=== PATIENT | male | born 1995 | race Two or more races ===

== ENCOUNTER 2024-11-07 19:46 | Inpatient (IN) | payer MEDICAID, OTHER ==
[~2024-11-07] VITALS: Ht 180.3 cm; Wt 78.9 kg
--- NOTE | 2024-11-07 20:15 | ED.PDOC ---
GI ASSESSMENT HPI Comments 29 y.o male presents to the ED for a chief complaint of generalized weakness associated with nausea, epigastric pain, and a generalized headache that started today at 0200 s/p getting off work. Patient reports pain is localized to the epigastric region, described as sharp, constant, radiates to lower abdomen and worsens on palpation. Patient also reports cramping to bilateral hands with tinglings sensation. He denies any vomiting, fever, chills, diarrhea, constipation, sweats. No medical history noted. Chief Complaint: General Weakness Time Seen by MD: 20:05 Reviewed Notes: Nurses Notes, Medications, Allergies Allergies: Coded Allergies: NO KNOWN ALLERGIES (Unverified , 11/07/24) Information Source: Patient Mode of Arrival: Ambulatory Timing: Hours Duration: Since onset Quality: Sharp Vomitus: None Stool: Normal Severity: Moderate Recent: None Recent Hx of: None Pain Location: Epigastric Modifying Factors: Nothing Associated sign and symptoms: Nausea, Abdominal Pain Past Medical History PAST MEDICAL HISTORY: Denies Surgical History: Denies all surgeries Family History Family History: Reviewed,noncontributory to illness Social History Smoker: Non-Smoker Alcohol: Denies ETOH Use Drugs: Denies Drug Use Lives In: Home Constitutional: denies: chills, diaphoresis, fatigue, fever, malaise, sweats, weakness, others EENTM: denies: blurred vision, double vision, ear bleeding, ear discharge, ear drainage, ear pain, ear ringing, eye pain, eye redness, hearing loss, mouth pain, mouth swelling, nasal discharge, nose bleeding, nose congestion, nose pain, photophobia, tearing, throat pain, throat swelling, voice changes, others Respiratory: denies: cough, hemoptysis, orthopnea, SOB at rest, shortness of breath, SOB with excertion, stridor, wheezing, others Cardiovascular: denies: chest pain, dizzy spells, diaphoresis, Dyspnea on exertion, edema, irregular heart beat, left arm pain, lightheadedness, palpitations, PND, syncope, others Gastrointestinal: reports: abdominal pain, nausea; denies: abdomen distended, blood streaked bowels, constipated, diarrhea, dysphagia, difficulty swallowing, hematemesis, melena, poor appetite, poor fluid intake, rectal bleeding, rectal pain, vomiting, others Genitourinary: denies: burning, dysuria, flank pain, frequency, hematuria, i ncontinence, penile discharge, penile sore, pain, testicle pain, testicle swelling, urgency, others Neurological: reports: headache; denies: dizziness, fainting, left sided numbness, left sided weakness, numbness, paresthesia, pre-existing deficit, right sided numbness, right sided weakness, seizure, speech problems, tingling, tremors, weakness, others Musculoskeletal: reports: muscle stiffness, others (hand cramping ); denies: back pain, gout, joint pain, joint swelling, muscle pain, neck pain Integumetry: denies: bruises, change in color, change in hair/nails, dryness, laceration, lesions, lumps, rash, wounds, others Allergic/Immunocompromised: denies: Difficulty Healing, Frequent Infections, Hives, Itching, others Hematologic/Lymphatic: denies: anemia, blood clots, easy bleeding, easy bruising, swollen glands, others Endocrine: denies: excessive hunger, excessive sweating, excessive thirst, excessive urination, flushing, intolerance to cold, intolerance to heat, unexplained weight gain, unexplained weight loss, others Psychiatric: denies: anxiety, bipolar disorder, depression, hopeless, panic disorder, schizophrenia, sleepless, suicidal, others All Other Systems: Reviewed and Negative Physical Exam General Appearance: Moderate Distress HEENT: Normal ENT Inspection, Pharynx Normal, TMs Normal Neck: Full Range of Motion, Non-Tender, Normal, Normal Inspection Respiratory: Chest Non-Tender, Lungs Clear, No Accessory Muscle Use, No Respiratory Distress, Normal Breath Sounds Cardiovascular: No Edema, No JVD, No Murmur, No Gallop, Normal Peripheral Pulses, Regular Rate/Rhythm Breast Exam: Deferred Gastrointestinal: Epigastric, No Organomegaly, No Pulsatile Mass, Tenderness (diffuse tenderness) Genitalia: Deferred Pelvic: Deferred Rectal: Deferred Extremities: NOT DONE Musculoskeletal : Apperance: Normal Neurologic: NOT DONE Cerebellar Function: NOT DONE Reflexes: NOT DONE Skin: Diaphoresis, Normal Color, Warm Lymphatic: No Adenopathy Was a procedure done? Was a procedure done?: No GI differential Dx Differential Diagnosis: Gastritis/PUD, Gastroenteritis, Dehydration, Electrolyte Imbalance, Food Poisoning, Bacterial, Parasitic, Viral, Stress Ulcer X-Ray, Labs, Meds, VS Vital Signs Date Time Temp Pulse Resp B/P (MAP) Pulse Ox O2 Delivery O2 Flow Rate FiO2 11/07/24 23:27 100.1 77 16 155/67 (96) 98 100.1 11/07/24 20:31 98.8 101 20 99/46 (63) 100 98.8 11/07/24 19:48 98.8 93 19 116/67 99 98.8 Lab Test 11/07/24 23:06 11/07/24 20:45 11/07/24 20:03 Range/Units Lactic Acid Level 3.0 *H 5.4 *H 0.4-2.0 mmol/L White Blood Count 18.0 H 4.4-10.8 10^3/uL Red Blood Count 5.55 4.5-5.90 10^6/uL Hemoglobin 17.1 13.5-17.5 g/dL Hematocrit 49.5 41.0-53.0 % Mean Corpuscular Volume 89.2 80.0-100.0 fL Mean Corpuscular Hemoglobin 30.7 28.0-32.0 pg Mean Corpuscular Hemoglobin Concent 34.4 32.0-36.0 g/dL Red Cell Distribution Width 13.3 11.8-14.3 % Platelet Count 253 140-450 10^3/uL Mean Platelet Volume 8.6 6.9-10.8 fL Neutrophils (%) (Auto) 89.3 H 37.0-80.0 % Lymphocytes (%) (Auto) 6.1 L 10.0-50.0 % Monocytes (%) (Auto) 4.6 0.0-12.0 % Eosinophils (%) (Auto) 0.0 0.0-7.0 % Basophils (%) (Auto) 0.0 0.0-2.0 % Neutrophils # (Auto) 16.1 H 1.6-8.6 10 ^3/uL Lymphocytes # (Auto) 1.1 0.4-5.4 10 ^3/uL Monocytes # (Auto) 0.8 0-1.3 10 ^3/uL Eosinophils # (Auto) 0 0-0.8 10 ^3/uL Basophils # (Auto) 0 0-0.2 10 ^3/uL Nucleated Red Blood Cells 0.1 % Sodium Level 138 136-145 mmol/L Potassium Level 3.2 L 3.5-5.1 mmol/L Chloride Level 102 98-107 mmol/L Carbon Dioxide Level 17 L 20-31 mmol/L Anion Gap 19 H 5-15 Blood Urea Nitrogen 10 9-23 mg/dL Creatinine 0.99 0.700-1.30 mg/dL Glomerular Filtration Rate Calc 106 >90 mL/min BUN/Creatinine Ratio 10.1 10.0-20.0 Serum Glucose 121 H 74-106 mg/dL Calcium Level 10.6 H 8.7-10.4 mg/dL POC Glucose 132 H 70-106 mg/dl Current Medications Medications (Trade) Dose Ordered Sig/Olivia Route Start Time Stop Time Status Last Admin Sodium Chloride 1,000 ml @ 1,000 mls/hr Q1H ONCE IV 11/07/24 21:30 11/07/24 22:29 DC 11/07/24 22:55 Ondansetron HCl (Zofran) 4 mg ONCE ONCE IV 11/07/24 21:30 11/07/24 21:31 DC 11/07/24 22:56 Vancomycin HCl 250 ml @ 250 mls/hr ONCE ONCE IV 11/07/24 21:30 11/07/24 22:29 DC 11/07/24 23:17 Ketorolac Tromethamine (Toradol Injection) 30 mg ONCE ONCE IV 11/07/24 23:15 11/07/24 23:16 DC 11/07/24 22:56 X-Ray, Labs, Meds, VS Comment pt has elevated Lactic acid, elevated WBC, ct scan shows 8mm dilated appendix Consult with Dr Plunkett, placed, he would like CT w/con Pt placed on vanco and Zosyn Time of 1ST Reevaluation: 20:15 Reevaluation 1ST: Unchanged Time of 2ND Reevaluation: 22:33 Reevaluation 2ND: Unchanged (Upon secondary re-evaluation, significant other who was with the patient states that patient was dealing with a dental infection/abscess for the last six months. Seen dentist a month ago. This is a recurrent infection.) Patient Education/Counseling: Diagnosis, Treatment, Prognosis Family Education/Counseling: Diagnosis, Treatment, Prognosis SEPSIS Sepsis Screen Date sepsis recognized/suspect: Nov 07, 2024 Time Sepsis recognized/suspect: 1947 Recent Procedure: No On Antibiotic Therapy: No Respiratory Rate >20: No Heart Rate >90: Yes Temp<36 C (96.8 F) or >38.3 C: No SBP <90 or MAP <65 mmHG: No New Acute Mental Status Change: No Is the patient on CPAP, BIPAP,: No Physician Orders Urinalysis (11/07/24 20:32) Rapid Influenza A&B (11/07/24 20:32) Covid19 Antigen Carmen (11/07/24 ) Chest Xray 1 View (11/07/24 20:32) Drug Screen (11/07/24 21:27) Blood Culture (11/07/24 21:27) Ct Ab Pel Wo Con-No Oral Or Iv (11/07/24 22:06) Maxillofacial With (11/07/24 22:30) Ct Ab Pel With Iv Con Only (11/07/24 22:30) Piperacillin-Tazob 3.375gm (Zosyn 3.375g (11/07/24 23:45) Vital Signs Date Time Temp Pulse Resp B/P (MAP) Pulse Ox O2 Delivery O2 Flow Rate FiO2 11/07/24 23:27 100.1 77 16 155/67 (96) 98 100.1 11/07/24 20:31 98.8 101 20 99/46 (63) 100 98.8 11/07/24 19:48 98.8 93 19 116/67 99 98.8 Laboratory Tests Test 11/07/24 20:45 11/07/24 23:06 Lactic Acid Level 5.4 mmol/L (0.4-2.0) *H 3.0 mmol/L (0.4-2.0) *H White Blood Count 18.0 10^3/uL (4.4-10.8) H Medications Medications Dose Ordered Sig/Olivia Route Start Time Stop Time Status Last Admin Dose Admin Ketorolac Tromethamine 30 mg ONCE ONCE IV 11/07/24 23:15 11/07/24 23:16 DC 11/07/24 22:56 Ondansetron HCl 4 mg ONCE ONCE IV 11/07/24 21:30 11/07/24 21:31 DC 11/07/24 22:56 Sodium Chloride 1,000 ml @ 1,000 mls/hr Q1H ONCE IV 11/07/24 21:30 11/07/24 22:29 DC 11/07/24 22:55 Vancomycin HCl 250 ml @ 250 mls/hr ONCE ONCE IV 11/07/24 21:30 11/07/24 22:29 DC 11/07/24 23:17 Departure 1 Departure Time of Disposition: 23:36 Impression: Primary Impression: Appendicitis Qualified Codes: K35.200 - Acute appendicitis with generalized peritonitis, without perforation or abscess Additional Impressions: Elevated lactic acid level Elevated WBCs Qualified Codes: D72.825 - Bandemia Disposition: ADMITTED INPATIENT Condition: Stable Discharged With: Self Critical Care Note Critical Care Time?: No Stability Stability form required: No I personally scribed for CHACORTA REYNA ([facility]) on 11/07/24 at 20:15. Electronically submitted by Brissa Maria ([facility]). CHACORTA REYNA Nov 07, 2024 20:15
[2024-11-07] MEDS ORDERED: KETOROLAC TROMETH 30 MG/ML 1ML VIAL IM ONE (20:45)
--- NOTE | 2024-11-07 21:00 | DVH ---
CHEST RADIOGRAPH Indication: sob Technique: Single frontal view of the chest was obtained Comparison: None FINDINGS: Lines and Tubes: None Lungs: No focal consolidation. Pleura: No effusion. No pneumothorax. Cardiomediastinal contours: Unremarkable Bones: No acute osseous abnormality. IMPRESSION: 1. No acute cardiopulmonary disease.
[2024-11-07 21:01] LABS: Hematocrit 49.5 % (41.0-53.0); Hemoglobin 17.1 g/dL (13.5-17.5); Mean Corpuscular Hemoglobin 30.7 pg (28.0-32.0); Mean Corpuscular Volume 89.2 fL (80.0-100.0); Nucleated Red Blood Cells % 0.1 %
[2024-11-07 21:05] LABS: Chloride 102 mmol/L (98-107); Sodium 138 mmol/L (136-145)
[2024-11-07 21:06] LABS: Anion Gap 19 (5-15)
[2024-11-07 21:11] LABS: BUN/Creatinine Ratio 10.1 (10.0-20.0); Blood Urea Nitrogen 10 mg/dL (9-23)
[2024-11-07 21:15] LABS: Calcium 10.6 mg/dL (8.7-10.4); Carbon Dioxide 17 mmol/L (20-31); Glucose 121 mg/dL (74-106); Potassium 3.2 mmol/L (3.5-5.1)
[2024-11-07 21:22] LABS: Lactic Acid w/Reflex 5.4 mmol/L (0.4-2.0)
--- NOTE | 2024-11-07 22:41 | DVH ---
Exam: CT CT AB PEL WO CON-NO ORAL OR IV History: abd pain Comparison Study: None TECHNIQUE: Multidetector CT of the abdomen and pelvis was performed from lung bases to pubic symphysi s. Imaging was performed without IV contrast. Axial, coronal, and sagittal multiplanar reformats were obtained from the axial data set by the technologist. RADIATION DOSE: CTDI vol 5.2 mGy. DLP 258.28 mGy.cm Findings: Limited evaluation of the solid organs in the absence of IV contrast. Lungs: The lung bases are clear. Liver: Unremarkable. Spleen: Unremarkable. Pancreas: Unremarkable. Gallbladder: Unremarkable. Adrenals: Unremarkable Kidneys: Unremarkable. Pelvic Viscera: Unremarkable. Vasculature: Unremarkable. Retroperitoneum: Unremarkable. Bowel: No bowel obstruction. Fluid-filled and mildly dilated retrocecal appendix measuring up to 8 mm with minimal adjacent stranding. No abscess. Musculoskeletal: Unremarkable. Soft tissues: Unremarkable Impression: 1. Findings as above raising the possibility of acute appendicitis in the appropriate clinical settin g. No abscess.
[2024-11-07] MEDS: IOHEXOL 300 MG/ML 100ML BOTTLE IJ ONE (22:50)
[2024-11-07] MEDS: SODIUM CHLORIDE 0.9% 1,000 ML IV ONE (22:55)
[2024-11-07] MEDS: KETOROLAC TROMETH 30 MG/ML 1ML VIAL IV ONE (22:56)
[2024-11-07] MEDS: VANCOMYCIN 1GM/250ML KIT 250 ML IV ONE (22:56)
[2024-11-07] MEDS: ONDANSETRON HCL 4 MG/2 ML VIAL IV ONE (22:56)
[2024-11-07 23:27] VITALS: RESP 18
[2024-11-07] MEDS: ACETAMINOPHEN 325 MG TAB PO ONE (23:48)
[2024-11-07] MEDS: PIPERACILLIN-TAZOB 3.375GM 100 ML IV ONE (23:48)
--- NOTE | 2024-11-07 23:56 | DVH ---
HISTORY: dental infection TECHNIQUE: Nonenhanced axial images through the facial bones with coronal and sagittal MPR. Radiation Dose Information: CT Dose: CTDI volume is 66.95 mGy. Dose-length product is 1.78 mGy*cm COMPARISON: None FINDINGS: Several dental restorations are present. Recent appearing right mandibular 3rd molar extraction. No o bvious dental carious lesion or periapical lucency. No evidence of abscess or significant soft tissue inflammation. No lymphadenopathy. Mild mucosal thic kening of the maxillary sinuses. The orbits are unremarkable. Normal appearance of vascular structur es. No acute finding of the imaged intracranial contents or superior cervical spine. A posterior fossa ar achnoid cyst versus karime cisterna magna is present. IMPRESSION: 1. No evidence of facial abscess or significant inflammation. 2. Several dental restorations and a recent appearing right mandibular 3rd molar extraction. Radiation optimization: All CT scans at this facility use at least one of these dose optimization catracho hniques: automated exposure control mA and/or kV adjustment per patient size (includes targeted exam s where dose is matched to clinical indication) or iterative reconstruction.
[2024-11-08] VITALS (7 sets, daily range): BP systolic 102–116; BP diastolic 63–69; PULSE 69–86; RESP 16–18; TEMP 98.6–99.5; O2SAT 96–99
--- NOTE | 2024-11-08 00:27 | DVH ---
Exam: CT CT AB PEL WITH IV CON ONLY History: abd pain Comparison Study: CT CT AB PEL WO CON-NO ORAL OR IV on DOS: 11/07/24 TECHNIQUE: A digital radiation monitor image was obtained. During the uneventful, intravenous administration of c ontrast material, multislice data acquisition was obtained through the abdomen and pelvis. The data s et was subsequently reconstructed into multiplanar reformats. RADIATION DOSE: CTDI vol 10.83 mGy. DLP 2094.59 mGy.cm Findings: Lungs: The lung bases are clear. Liver: Unremarkable. Spleen: Unremarkable. Pancreas: Unremarkable. Gallbladder: Unremarkable. Adrenals: Unremarkable Kidneys: Unremarkable. Pelvic Viscera: Unremarkable. Vasculature: Unremarkable. Retroperitoneum: Unremarkable. Bowel: No bowel obstruction. Fluid-filled appendix measuring up to 8 mm with minimal adjacent strandi ng. No abscess. Musculoskeletal: Unremarkable. Soft tissues: Unremarkable Impression: 1. Findings as above raising the possibility of a mild acute appendicitis in the appropriate clinical setting. No abscess.
[2024-11-08] MEDS ORDERED: POTASSIUM CHLORIDE 20 MEQ, LIDOCAINE 1% (LOCAL ANESTH.) 2 ML in SODIUM CHL 0.9% 100 ML IV ONE (01:30)
[2024-11-08 01:34] LABS: Urine Protein, UAD TRACE (Negative)
[2024-11-08 01:51] LABS: COVID19 ANTIGEN SOFIA FIA NEGATIVE (NEGATIVE)
[2024-11-08] MEDS: POTASSIUM CHL 20 Meq TABLET PO ONE (01:58)
[2024-11-08 02:04] LABS: Amphetamine Screen, Urine Neg (NEGATIVE); Barbiturate Scree,Urine Neg (NEGATIVE); Benzodiazephine Screen, Urine Neg (NEGATIVE); Cannabinoid Screen, Urine Neg (NEGATIVE); Cocaine Screen, Urine Neg (NEGATIVE); Opiate Scree,Urine Neg (NEGATIVE); Phencyclidine Screen, Urine Neg (NEGATIVE)
[2024-11-08] MEDS ORDERED: MORPHINE SULFATE INJ 2 MG/ml SYRG IV PRN (03:00)
[2024-11-08] MEDS ORDERED: HYDROcodone-ACET 5/325MG TAB PO PRN (03:00)
[2024-11-08] MEDS ORDERED: DOCUSATE SOD 100 MG CAP PO PRN (03:00)
[2024-11-08] MEDS ORDERED: ONDANSETRON HCL 4 MG/2 ML VIAL IV PRN (03:00)
[2024-11-08] MEDS ORDERED: ACETAMINOPHEN 325 MG TAB PO PRN (03:00)
[2024-11-08] MEDS: SODIUM CHLORIDE 0.9% 1,000 ML IV SCH ×3 (03:45→21:48)
[2024-11-08 05:52] LABS: Hematocrit 42.5 % (41.0-53.0); Hemoglobin 14.4 g/dL (13.5-17.5); Mean Corpuscular Hemoglobin 29.7 pg (28.0-32.0); Mean Corpuscular Volume 87.7 fL (80.0-100.0); Nucleated Red Blood Cells % 0.0 %
[2024-11-08 06:08] LABS: INR 1.16 (0.9-1.15); Prothrombin Time 12.1 sec (9.3-11.8)
[2024-11-08] MEDS: PIPERACILLIN-TAZOB 3.375GM 100 ML IV SCH (06:13)
[2024-11-08 06:31] LABS: Alanine Aminotransferase 15 U/L (7-40); Albumin 4.3 g/dL (3.2-4.8); Alkaline Phosphatase 61 U/L (46-116); Anion Gap 9 (5-15); BUN/Creatinine Ratio 14.0 (10.0-20.0); Blood Urea Nitrogen 12 mg/dL (9-23); Calcium 8.8 mg/dL (8.7-10.4); Carbon Dioxide 25 mmol/L (20-31); Chloride 106 mmol/L (98-107); Potassium 4.2 mmol/L (3.5-5.1); Sodium 140 mmol/L (136-145); Total Protein 6.5 g/dL (5.7-8.2)
[2024-11-08 06:33] LABS: Bilirubin, Total 1.1 mg/dL (0.2-1.0)
[2024-11-08 06:38] LABS: Glucose 114 mg/dL (74-106)
[2024-11-08 06:45] LABS: Lipase 30 U/L (12-53)
--- NOTE | 2024-11-08 08:53 | DVHHPRES ---
History of Present Illness Resident Creating Document: PIERCE WHITLOCK RESIDENT History of Present Illness 29-year-old male with no past medical history presented to the hospital with complains of abdominal pain, nausea, tingling in the hands and fever from 10:00 a.m. the previous day. He rated the pain 8 on 10 in intensity sharp, present all day, with no aggravating or alleviating factors. His labs showed neutrophilic leukocytosis with lactic acid of 5.4. CT abdomen showed mild appendicitis without abscess. Surgery consultation given. The patient is being treated with IV antibiotics and fluids. Patient is kept on NPO for Surgical evaluation. PMHx: Denies PSHx: Denies Family history: Noncontributory Social history: Occasionally drinks alcohol denies smoking or illicit drugs Home medication: None Allergic history: Nil Review of Systems Review of Systems General: patient denies fever, fatigue, weaknes, sweating, any recent changes in appetite and weight HEENT: No headaches, visiual changes, hearing loss, tinnitus, nasal congestion and discharge, and sore throat. Cardiovascular: Denies chest pain, palpitations, dyspnea on exertion, orthopnea, or claudication. Respiratory: No cough, and wheezing. Gastrointestinal: Denies abdominal pain, Denies nausea, vomiting, dysphagia, odynophagia, heartburn, flatulence, bloating, diarrhea, constipation, change in stool, or blood in stool. Genitourinary: No dysuria, hematuria, discharge, frequency, urgency, nocturia, incontinence, and urinary retention. Endocrine: No heat or cold intolerance, polydipsia, polyuria, and polyphagia. Neurological: No dizziness, extremity weakness and numbness, tremors, gait disturbance, seizures, and memory impairment. Psychiatric: Denies depression, anxiety,or insomnia. Musculoskeletal: Denies neck pain, stiffness and swelling, back pain, muscle weakness, joint pain, stiffness, swelling, or limited range of motion. Skin: No rashes, itching, skin lesion, changes in hair, nail, skin texture and breast. Hematologic/Lymphatic: Denies easy bruising, bleeding tendencies, or lymph node enlargement. Allergies: Coded Allergies: NO KNOWN ALLERGIES (Unverified , 11/07/24) Medications Current Medications Medications Dose Ordered Sig/Olivia Route Start Time Stop Time Status Last Admin Dose Admin Piperacillin Sod/ Tazobactam Sod 100 ml @ 25 mls/hr Q6HR IV 11/08/24 06:00 11/08/24 06:13 25 MLS/HR Acetaminophen 325 mg Q4HP PRN PO 11/08/24 03:00 Acetaminophen/ Hydrocodone Bitart 1 tab Q4HP PRN PO 11/08/24 03:00 Ondansetron HCl 4 mg Q4HP PRN IV 11/08/24 03:00 Morphine Sulfate 2 mg Q4HPRN PRN IV 11/08/24 03:00 Sodium Chloride 1,000 ml @ 150 mls/hr Q6H40M IV 11/08/24 04:30 11/08/24 04:44 150 MLS/HR Chlorhexidine Gluconate 15 ml Q12HR MT 11/08/24 10:00 Exam Vital Signs Vital Signs Date Time Temp Pulse Resp B/P (MAP) Pulse Ox O2 Delivery O2 Flow Rate FiO2 11/08/24 06:30 98.0 67 96 106/63 (77) 96 98.0 11/07/24 23:27 Room Air* 0 21 Exam General Appearance: Alert, Oriented X3, Cooperative, No acute distress HEENT: Atraumatic, PERRLA, EOMI, Mucous membrane moist/pink Respiratory: Clear to auscultation, Normal air movement Cardiovascular: Regular rate, Normal S1, Normal S2, No murmurs, no chest wall tenderness Abdominal: Normal bowel sounds, Soft, No tenderness, No hepatospenomegaly, No masses, no guarding, rigidity, rebound tenderness Extremities: No clubbing, No cyanosis, No edema, Normal pulses, No tenderness/swelling Skin: No rashes, No breakdown, No significant lesion Neuro: Normal gait, Normal speech, Strength at 5/5 X4 ext, Normal tone, Sensation intact, Cranial nerves 3-12 NL, Reflexes 2+ Psych/Mental Status: Mental status NL, Mood NL Labs/Xrays Labs Test 11/08/24 05:26 11/08/24 01:15 11/08/24 01:04 11/07/24 20:03 Range/Units White Blood Count 15.1 H 4.4-10.8 10^3/uL Red Blood Count 4.84 4.5-5.90 10^6/uL Hemoglobin 14.4 # 13.5-17.5 g/dL Hematocrit 42.5 # 41.0-53.0 % Mean Corpuscular Volume 87.7 80.0-100.0 fL Mean Corpuscular Hemoglobin 29.7 28.0-32.0 pg Mean Corpuscular Hemoglobin Concent 33.9 32.0-36.0 g/dL Red Cell Distribution Width 13.2 11.8-14.3 % Platelet Count 223 140-450 10^3/uL Mean Platelet Volume 8.4 6.9-10.8 fL Neutrophils (%) (Auto) 83.9 H 37.0-80.0 % Lymphocytes (%) (Auto) 8.5 L 10.0-50.0 % Monocytes (%) (Auto) 7.5 0.0-12.0 % Eosinophils (%) (Auto) 0.0 0.0-7.0 % Basophils (%) (Auto) 0.1 0.0-2.0 % Neutrophils # (Auto) 12.6 H 1.6-8.6 10 ^3/uL Lymphocytes # (Auto) 1.3 0.4-5.4 10 ^3/uL Monocytes # (Auto) 1.1 0-1.3 10 ^3/uL Eosinophils # (Auto) 0 0-0.8 10 ^3/uL Basophils # (Auto) 0 0-0.2 10 ^3/uL Nucleated Red Blood Cells 0.0 % Prothrombin Time 12.1 H 9.3-11.8 sec Prothrombin Time INR 1.16 H 0.9-1.15 Sodium Level 140 136-145 mmol/L Potassium Level 4.2 3.5-5.1 mmol/L Chloride Level 106 98-107 mmol/L Carbon Dioxide Level 25 20-31 mmol/L Anion Gap 9 5-15 Blood Urea Nitrogen 12 9-23 mg/dL Creatinine 0.86 0.700-1.30 mg/dL Glomerular Filtration Rate Calc 121 >90 mL/min BUN/Creatinine Ratio 14.0 10.0-20.0 Serum Glucose 114 H 74-106 mg/dL Lactic Acid Level 0.8 0.4-2.0 mmol/L Calcium Level 8.8 8.7-10.4 mg/dL Total Bilirubin 1.1 H 0.2-1.0 mg/dL Aspartate Amino Transferase (AST) 16 13-40 U/L Alanine Aminotransferase (ALT) 15 7-40 U/L Alkaline Phosphatase 61 46-116 U/L Total Protein 6.5 5.7-8.2 g/dL Albumin 4.3 3.2-4.8 g/dL Lipase 30 12-53 U/L Beta-Hydroxybutyric Acid 0.220 < 0.4 mmol/L Plasma/Serum Blood Alcohol < 3.0 <10 mg/dL Influenza Type A Antigen Negative Negative Influenza Type B Antigen Negative Negative SARS-CoV-2 Antigen (Rapid) Negative NEGATIVE Urine Color Yellow Yellow Urine Clarity Clear Clear Urine pH 8.0 5.0-9.0 Urine Specific [place] > 1.050 H 1.001-1.035 Urine Protein Trace H Negative Urine Ketones 3+ H Negative Urine Blood Negative Negative /uL Urine Nitrite Negative Negative Urine Bilirubin Negative Negative Urine Urobilinogen Normal Negative mg/dL Urine Leukocyte Esterase Negative Negative /uL Urine RBC 4 0 - 3 /hpf Urine Microscopic WBC 1 0-3 /HPF Urine Squamous Epithelial Cells None seen <5 /hpf Urine Bacteria None seen None Seen /hpf Urine Glucose Normal Normal mg/dL Urine Opiates Screen Neg NEGATIVE Urine Fentanyl Screen Neg NEGATIVE Urine Barbiturates Screen Neg NEGATIVE Urine Phencyclidine Screen Neg NEGATIVE Urine Amphetamines Screen Neg NEGATIVE Urine Benzodiazepines Screen Neg NEGATIVE Urine Cocaine Screen Neg NEGATIVE Urine Cannabinoids Screen Neg NEGATIVE POC Glucose 132 H 70-106 mg/dl SEPSIS Sepsis Screen Date sepsis recognized/suspect: Nov 08, 2024 Time Sepsis recognized/suspect: 003 Recent Procedure: No On Antibiotic Therapy: No Respiratory Rate >20: No Heart Rate >90: No Temp<36 C (96.8 F) or >38.3 C: No SBP <90 or MAP <65 mmHG: No New Acute Mental Status Change: No Is the patient on CPAP, BIPAP,: No Physician Orders Piperacillin-Tazob 3.375gm (Zosyn 3.375g (11/08/24 06:00) * Surgical Consult (11/08/24 ) Admit (11/08/24 02:58) Allergies (11/08/24 02:58) Code Status (11/08/24 02:58) Acetaminophen Tablet (Tylenol Tablet) (11/08/24 03:00) Hydrocodone-Acet 5/325mg Tab ([place] 5/32 (11/08/24 03:00) Ondansetron Hcl (Zofran) (11/08/24 03:00) Condition: Fair (11/08/24 02:58) Morphine Sulfate Injection (11/08/24 03:00) Sodium Chloride 0.9% (11/08/24 04:30) Npo Except Ice Chips (11/08/24 04:30) Npo (Nothing By Mouth) Diet (11/08/24 Breakfast) Chlorhexidine Oral Rinse (Chlorhexidine (11/08/24 10:00) Vital Signs Date Time Temp Pulse Resp B/P (MAP) Pulse Ox O2 Delivery O2 Flow Rate FiO2 11/08/24 06:30 98.0 67 96 106/63 (77) 96 98.0 11/08/24 04:15 73 12 112/59 (76) 94 11/08/24 03:05 72 11/08/24 01:29 99.0 74 13 112/69 (83) 97 99.0 11/08/24 00:25 99.3 11/07/24 23:48 100.1 Laboratory Tests Test 11/07/24 20:45 11/07/24 23:06 11/08/24 05:26 Lactic Acid Level 5.4 mmol/L (0.4-2.0) *H 3.0 mmol/L (0.4-2.0) *H 0.8 mmol/L (0.4-2.0) White Blood Count 18.0 10^3/uL (4.4-10.8) H 15.1 10^3/uL (4.4-10.8) H Medications Medications Dose Ordered Sig/Olivia Route Start Time Stop Time Status Last Admin Dose Admin Acetaminophen 650 mg ONCE ONCE PO 11/07/24 23:30 11/07/24 23:31 DC 11/07/24 23:48 650 MG Ketorolac Tromethamine 30 mg ONCE ONCE IV 11/07/24 23:15 11/07/24 23:16 DC 11/07/24 22:56 30 MG Ondansetron HCl 4 mg ONCE ONCE IV 11/07/24 21:30 11/07/24 21:31 DC 11/07/24 22:56 4 MG Piperacillin Sod/ Tazobactam Sod 100 ml @ 25 mls/hr Q6HR IV 11/08/24 06:00 11/08/24 06:13 25 MLS/HR Piperacillin Sod/ Tazobactam Sod 100 ml @ 100 mls/hr ONCE ONCE IV 11/07/24 23:45 11/08/24 00:44 DC 11/07/24 23:48 100 MLS/HR Potassium Chloride 40 meq ONCE ONCE PO 11/08/24 02:00 11/08/24 02:01 DC 11/08/24 01:58 40 MEQ Sodium Chloride 1,000 ml @ 60 mls/hr [id number] IV 11/08/24 03:00 11/08/24 04:40 DC 11/08/24 03:45 60 MLS/HR Sodium Chloride 1,000 ml @ 150 mls/hr Q6H40M IV 11/08/24 04:30 11/08/24 04:44 150 MLS/HR Sodium Chloride 1,000 ml @ 1,000 mls/hr Q1H ONCE IV 11/07/24 21:30 11/07/24 22:29 DC 11/07/24 22:55 1,000 MLS/HR Vancomycin HCl 250 ml @ 250 mls/hr ONCE ONCE IV 11/07/24 21:30 11/07/24 22:29 DC 11/07/24 23:17 250 MLS/HR Assessment/Plan Assessment/Plan Sepsis secondary to acute appendicitis Neutrophilic leukocytosis with lactic acid elevated Blood culture ordered Acute appendicitis On Zosyn and IV fluids Surgery consult Patient kept NPO To rule out acute pancreatitis Serum lipase Anion gap metabolic acidosis possibly due to lactic acid Hypokalemia Potassium supplemented Plan discussed with: Patient My Orders Orders - PIERCE WHITLOCK RESIDENT Procedure Category Date Status Time Piperacillin-Tazob PHA 11/08/24 In Process 3.375gm (Zosyn 3.375g 06:00 * Surgical Consult CONS 11/08/24 Transmitted Admit ADMIT 11/08/24 Transmitted 02:58 Allergies SAUNDRA 11/08/24 In Process 02:58 Code Status CODE 11/08/24 Transmitted 02:58 Acetaminophen Tablet PHA 11/08/24 In Process (Tylenol Tablet) 03:00 Hydrocodone-Acet PHA 11/08/24 In Process 5/325mg Tab ([place] 03:00 Ondansetron Hcl PHA 11/08/24 In Process (Zofran) 03:00 Condition: Fair SAUNDRA 11/08/24 In Process 02:58 Morphine Sulfate PHA 8/25/25 In Process Injection 03:00 Date of Service: Nov 08, 2024 Billing Provider: ARRON QUICK MD Common Visit Codes: [id number] INP/OBS CARE (HIGH) Secondary Visit Codes: [id number] CARE PLAN 30 MINUTES PIERCE WHITLOCK RESIDENT Nov 08, 2024 07:33
[2024-11-08] MEDS: CHLORHEXIDINE 0.12% ORAL rinse 473ML MT SCH (10:00)
--- NOTE | 2024-11-08 15:32 | DVHINCON2 ---
Date of service: Nov 08, 2024 History of Present Illness 21-year-old otherwise healthy male complaining of abdominal pain and nausea that began two days ago. Patient's initial CT showed possible early appendicitis. Overnight patient was continued on antibiotics and currently feels significantly better than yesterday. Past Medical History None Past Surgical History None Family History: Patient reports no known family medical history. Family History Noncontributory Social History Occasional alcohol. Denies any tobacco or IV drug use. Allergies: Coded Allergies: NO KNOWN ALLERGIES (Unverified , 11/07/24) Current Medications Current Medications Medications (Trade) Dose Ordered Sig/Olivia Route PRN Reason Start Time Stop Time Status Last Admin Piperacillin Sod/ Tazobactam Sod 100 ml @ 25 mls/hr Q6HR IV 11/08/24 06:00 11/08/24 12:56 Sodium Chloride 1,000 ml @ 60 mls/hr [id number] IV 11/08/24 03:00 11/08/24 04:40 DC 11/08/24 03:45 Acetaminophen (Tylenol Tablet) 325 mg Q4HP PRN PO MILD PAIN (1-3 PAIN SCALE) 11/08/24 03:00 Acetaminophen/ Hydrocodone Bitart ([place] 5/325MG Tab) 1 tab Q4HP PRN PO MODERATE PAIN (4-6 PAIN SCALE) 11/08/24 03:00 Ondansetron HCl (Zofran) 4 mg Q4HP PRN IV NAUSEA / VOMITING 11/08/24 03:00 Docusate Sodium (Colace Capsule) 100 mg BIDPRN PRN PO FOR CONSTIPATION 11/08/24 03:00 11/08/24 04:40 DC Morphine Sulfate 2 mg Q4HPRN PRN IV SEVERE PAIN (7-10 PAIN SCALE) 11/08/24 03:00 Sodium Chloride 1,000 ml @ 150 mls/hr Q6H40M IV 11/08/24 04:30 11/08/24 11:10 Chlorhexidine Gluconate (Chlorhexidine Oral Rinse) 15 ml Q12HR MT 11/08/24 10:00 Vital Signs Vital Signs Date Time Temp Pulse Resp B/P (MAP) Pulse Ox O2 Delivery O2 Flow Rate FiO2 11/08/24 13:00 98.6 86 16 102/66 (78) 96 98.6 11/07/24 23:27 Room Air* 0 21 Physical Exam GEN: Age-appropriate male in no acute distress. Alert. HEENT: Normocephalic atraumatic. Moist mucous membranes. Anicteric sclerae. CV: RRR Respiratory: CTAB ABD: Soft. Very minimal bilateral lower quadrant tenderness to palpation without guarding or rebound. Nondistended. CT of the abdomen and pelvis with IV contrast: Fluid-filled appendix measuring up to 8 mm with minimal adjacent stranding without abscess. Possible mild acute appendicitis Labs/Diagnostic Data Labs Test 11/08/24 05:26 11/08/24 01:15 11/08/24 01:04 11/07/24 20:03 Range/Units White Blood Count 15.1 H 4.4-10.8 10^3/uL Red Blood Count 4.84 4.5-5.90 10^6/uL Hemoglobin 14.4 # 13.5-17.5 g/dL Hematocrit 42.5 # 41.0-53.0 % Mean Corpuscular Volume 87.7 80.0-100.0 fL Mean Corpuscular Hemoglobin 29.7 28.0-32.0 pg Mean Corpuscular Hemoglobin Concent 33.9 32.0-36.0 g/dL Red Cell Distribution Width 13.2 11.8-14.3 % Platelet Count 223 140-450 10^3/uL Mean Platelet Volume 8.4 6.9-10.8 fL Neutrophils (%) (Auto) 83.9 H 37.0-80.0 % Lymphocytes (%) (Auto) 8.5 L 10.0-50.0 % Monocytes (%) (Auto) 7.5 0.0-12.0 % Eosinophils (%) (Auto) 0.0 0.0-7.0 % Basophils (%) (Auto) 0.1 0.0-2.0 % Neutrophils # (Auto) 12.6 H 1.6-8.6 10 ^3/uL Lymphocytes # (Auto) 1.3 0.4-5.4 10 ^3/uL Monocytes # (Auto) 1.1 0-1.3 10 ^3/uL Eosinophils # (Auto) 0 0-0.8 10 ^3/uL Basophils # (Auto) 0 0-0.2 10 ^3/uL Nucleated Red Blood Cells 0.0 % Prothrombin Time 12.1 H 9.3-11.8 sec Prothrombin Time INR 1.16 H 0.9-1.15 Sodium Level 140 136-145 mmol/L Potassium Level 4.2 3.5-5.1 mmol/L Chloride Level 106 98-107 mmol/L Carbon Dioxide Level 25 20-31 mmol/L Anion Gap 9 5-15 Blood Urea Nitrogen 12 9-23 mg/dL Creatinine 0.86 0.700-1.30 mg/dL Glomerular Filtration Rate Calc 121 >90 mL/min BUN/Creatinine Ratio 14.0 10.0-20.0 Serum Glucose 114 H 74-106 mg/dL Lactic Acid Level 0.8 0.4-2.0 mmol/L Calcium Level 8.8 8.7-10.4 mg/dL Total Bilirubin 1.1 H 0.2-1.0 mg/dL Aspartate Amino Transferase (AST) 16 13-40 U/L Alanine Aminotransferase (ALT) 15 7-40 U/L Alkaline Phosphatase 61 46-116 U/L Total Protein 6.5 5.7-8.2 g/dL Albumin 4.3 3.2-4.8 g/dL Lipase 30 12-53 U/L Beta-Hydroxybutyric Acid 0.220 < 0.4 mmol/L Plasma/Serum Blood Alcohol < 3.0 <10 mg/dL Influenza Type A Antigen Negative Negative Influenza Type B Antigen Negative Negative SARS-CoV-2 Antigen (Rapid) Negative NEGATIVE Urine Color Yellow Yellow Urine Clarity Clear Clear Urine pH 8.0 5.0-9.0 Urine Specific [place] > 1.050 H 1.001-1.035 Urine Protein Trace H Negative Urine Ketones 3+ H Negative Urine Blood Negative Negative /uL Urine Nitrite Negative Negative Urine Bilirubin Negative Negative Urine Urobilinogen Normal Negative mg/dL Urine Leukocyte Esterase Negative Negative /uL Urine RBC 4 0 - 3 /hpf Urine Microscopic WBC 1 0-3 /HPF Urine Squamous Epithelial Cells None seen <5 /hpf Urine Bacteria None seen None Seen /hpf Urine Glucose Normal Normal mg/dL Urine Opiates Screen Neg NEGATIVE Urine Fentanyl Screen Neg NEGATIVE Urine Barbiturates Screen Neg NEGATIVE Urine Phencyclidine Screen Neg NEGATIVE Urine Amphetamines Screen Neg NEGATIVE Urine Benzodiazepines Screen Neg NEGATIVE Urine Cocaine Screen Neg NEGATIVE Urine Cannabinoids Screen Neg NEGATIVE POC Glucose 132 H 70-106 mg/dl Assessment 1. Possible early appendicitis currently clinically improving with the antibiotics Plan/Recommendation 1. Continue with IV antibiotics 2. Clear liquid diet 3. If he tolerates current nonsurgical treatment, recommend discharging him home with oral antibiotics Plan discussed with: Patient JUAN RAMON VENEGAS MD Nov 08, 2024 15:32
--- NOTE | 2024-11-08 18:33 | DVHPNRES ---
Progress Note Date Seen: Nov 08, 2024 Resident Creating Document: AYLIN FORREST RESIDENT Medical Necessity Reason Pt with a Central, PICC or Fol: No (RN) Subjective Review of Systems 29-year-old male with no past medical history presented to the hospital with complains of abdominal pain, nausea, tingling in the hands and fever from 10:00 a.m. the previous day. He rated the pain 8 on 10 in intensity sharp, present all day, with no aggravating or alleviating factors. His labs showed neutrophilic leukocytosis with lactic acid of 5.4. CT abdomen showed mild appendicitis without abscess. Surgery consultation given. The patient is being treated with IV antibiotics and fluids. Patient is kept on NPO for Surgical evaluation. PMHx: Denies PSHx: Denies Family history: Noncontributory Social history: Occasionally drinks alcohol denies smoking or illicit drugs Home medication: None Allergic history: Nil 11/08/2024 Interval events: He reports improvement in his abdominal pain. The patient denies nausea, vomiting, chest pain, shortness of breath or any other complaints. The patient was kept NPO, IV fluid was given and surgery was consulted. According to surgery, the patient she would be given IV antibiotics and conservative management. Based on further evaluation tomorrow, surgery will be done if necessary, otherwise conservative management continued. Objective vital signs Vital Sign Date Time Temp Pulse Resp B/P (MAP) Pulse Ox O2 Delivery O2 Flow Rate FiO2 11/08/24 17:00 99.3 69 16 110/63 (79) 98 99.3 11/07/24 23:27 Room Air* 0 21 Total Intake and Output 11/07/24 11/07/24 11/08/24 15:00 23:00 07:00 Intake Total 300 ml Output Total 600 ml Balance -300 ml medications Current Medications Medications Dose Ordered Sig/Olivia Route Start Time Stop Time Status Last Admin Dose Admin Piperacillin Sod/ Tazobactam Sod 100 ml @ 25 mls/hr Q6HR IV 11/08/24 06:00 11/08/24 12:56 25 MLS/HR Acetaminophen 325 mg Q4HP PRN PO 11/08/24 03:00 Acetaminophen/ Hydrocodone Bitart 1 tab Q4HP PRN PO 11/08/24 03:00 Ondansetron HCl 4 mg Q4HP PRN IV 11/08/24 03:00 Morphine Sulfate 2 mg Q4HPRN PRN IV 11/08/24 03:00 Chlorhexidine Gluconate 15 ml Q12HR MT 11/08/24 10:00 Sodium Chloride 1,000 ml @ 75 mls/hr [id number] IV 11/08/24 15:45 Examination Pt is lying on bed General Appearance: Alert, Oriented X3, Cooperative, Not in acute distress HEENT: Atraumatic, Mucous membranes moist/pink Respiratory: Clear to auscultation, Normal air movement, No added sounds Cardiovascular: Regular rate, Normal S1, Normal S2, No murmurs Abdominal: Active bowel sounds, Soft, no distention, no tenderness Extremities: No edema, Normal pulses, No tenderness/swelling Skin: No Significant rash, except past surgical scars Neuro: Normal speech, sensorimotor deficits none Psych/Mental Status: Mental status NL, Mood NL Nurse was there as television producer during examination laboratory and microbiology Laboratory Tests 11/08/24 05:26 Test 11/08/24 05:26 Range/Units Serum Glucose 114 H 74-106 mg/dL Problem List/Assessment/Plan Problem List/Assessment/Plan Acute uncomplicated appendicitis Sepsis secondary to appendicitis Intractable abdominal pain Ruled out periodontal abscess -NPO -IV fluids -pain management -ceftriaxone and metronidazole -surgery on boards. GI prophylaxis: Not indicated DVT prophylaxis: Not indicated Diet: NPO, clear liquids based on for very well Goals of care discussed with the patient for more than 27 minutes: Full code status Case discussed with , patient and nurse. Cosigning senior Resident: Perla Trevino, agree with progress note Plan discussed with: Patient, Other My Orders My Orders Orders - AYLIN FORREST Procedure Category Date Status Time Ceftriaxone Ivpb PHA 11/09/24 Verified Rocephin 09:00 Metronidazole Ivpb PHA 11/08/24 Verified Flagyl 22:00 Ceftriaxone Ivpb PHA 11/08/24 Verified Rocephin 18:30 Metronidazole Ivpb PHA 11/08/24 Verified Flagyl 18:30 Date of Service: Nov 08, 2024 Billing Provider: FAVIOLA JIMENEZ MD Common Visit Codes: [id number] INP/OBS CARE(HIGH) AYLIN FORREST Nov 08, 2024 18:33 PERLA TREVINO Nov 10, 2024 00:09 FAVIOLA JIMENEZ MD Nov 11, 2024 22:32
[2024-11-08 19:31] LABS: Hematocrit 41.4 % (41.0-53.0); Hemoglobin 14.0 g/dL (13.5-17.5); Mean Corpuscular Hemoglobin 29.9 pg (28.0-32.0); Mean Corpuscular Volume 88.2 fL (80.0-100.0); Nucleated Red Blood Cells % 0.1 %
[2024-11-08 19:55] LABS: Alanine Aminotransferase 14 U/L (7-40); Albumin 4.3 g/dL (3.2-4.8); Alkaline Phosphatase 60 U/L (46-116); Anion Gap 8 (5-15); BUN/Creatinine Ratio 10.6 (10.0-20.0); Bilirubin, Total 0.8 mg/dL (0.2-1.0); Blood Urea Nitrogen 9 mg/dL (9-23); Calcium 8.8 mg/dL (8.7-10.4); Carbon Dioxide 24 mmol/L (20-31); Chloride 106 mmol/L (98-107); Potassium 4.0 mmol/L (3.5-5.1); Sodium 138 mmol/L (136-145); Total Protein 6.8 g/dL (5.7-8.2)
[2024-11-08 19:58] LABS: Glucose 119 mg/dL (74-106)
[2024-11-08] MEDS: cefTRIAXone 1GM/50ML D5W 50 ML IV ONE (21:31)
[2024-11-09] VITALS (7 sets, daily range): BP systolic 101–111; BP diastolic 57–73; PULSE 69–90; RESP 16–19; TEMP 97.6–99.7; O2SAT 97–100
[2024-11-09 06:54] LABS: Chloride 107 mmol/L (98-107); Potassium 3.6 mmol/L (3.5-5.1); Sodium 141 mmol/L (136-145)
[2024-11-09 06:55] LABS: Anion Gap 9 (5-15); Calcium 8.7 mg/dL (8.7-10.4); Carbon Dioxide 25 mmol/L (20-31)
[2024-11-09 06:58] LABS: Hematocrit 39.1 % (41.0-53.0); Hemoglobin 13.8 g/dL (13.5-17.5); Mean Corpuscular Hemoglobin 30.6 pg (28.0-32.0); Mean Corpuscular Volume 86.9 fL (80.0-100.0); Nucleated Red Blood Cells % 0.0 %
[2024-11-09 07:00] LABS: BUN/Creatinine Ratio 9.6 (10.0-20.0); Glucose 93 mg/dL (74-106)
[2024-11-09 07:21] LABS: Blood Urea Nitrogen 8 mg/dL (9-23)
--- NOTE | 2024-11-09 07:57 | DVHPN2 ---
Progress Note - Dictate Date Seen: Nov 09, 2024 Medical Necessity Reason Pt with a Central, PICC or Fol: No (RN) Subjective E: no major events o/n. no complaints. denies abd pain. brandan clear liquid diet. vital signs Vital Sign Date Time Temp Pulse Resp B/P (MAP) Pulse Ox O2 Delivery O2 Flow Rate FiO2 11/09/24 05:00 98.4 80 19 104/57 (73) 97 98.4 11/08/24 20:14 Room Air* 0 21 Total Intake and Output 11/08/24 11/08/24 11/09/24 15:00 23:00 07:00 Intake Total 1125 ml 300 ml Balance 1125 ml 300 ml medications Current Medications Medications Dose Ordered Sig/Olivia Route Start Time Stop Time Status Last Admin Dose Admin Acetaminophen 325 mg Q4HP PRN PO 11/08/24 03:00 Acetaminophen/ Hydrocodone Bitart 1 tab Q4HP PRN PO 11/08/24 03:00 Ondansetron HCl 4 mg Q4HP PRN IV 11/08/24 03:00 Morphine Sulfate 2 mg Q4HPRN PRN IV 11/08/24 03:00 Chlorhexidine Gluconate 15 ml Q12HR MT 11/08/24 10:00 Sodium Chloride 1,000 ml @ 75 mls/hr [id number] IV 11/08/24 15:45 11/08/24 21:48 75 MLS/HR Ceftriaxone Sodium 50 ml @ 100 mls/hr DAILY@09 IV 11/09/24 09:00 Metronidazole 100 ml @ 100 mls/hr Q8HR IV 11/08/24 22:00 11/09/24 05:35 100 MLS/HR objective GEN: NAD ABD: soft. NT/ND. laboratory and microbiology Laboratory Tests 11/09/24 04:03 Test 11/09/24 04:03 Range/Units Serum Glucose 93 74-106 mg/dL Assessment/Plan A: 1. Possible early appendicitis currently clinically improving with the antibiotics P: 1. advance diet slowly. 2. ok from surgery POV for poss DC home with oral abx (cipro or levaquin + flagyl) for 5 days. 3. instructed the patient to return to ER if clinically worsens. Plan discussed with: Patient JUAN RAMON VENEGAS MD Nov 09, 2024 07:57
[2024-11-09] MEDS: cefTRIAXone 1GM/50ML D5W 50 ML IV SCH (09:55)
[2024-11-09] MEDS ORDERED: METR-344 PO (15:01)
[2024-11-09] MEDS ORDERED: LEVO500T91 PO (15:01)
[2024-11-09] MEDS ORDERED: NUTR-559 PO (15:01)
--- NOTE | 2024-11-09 15:05 | DVHDSRES ---
Discharge Summary Date of Admission Resident Creating Document: AYLIN PÉREZ RESIDENT Nov 08, 2024 at 02:58 Date of Discharge: Nov 09, 2024 Admitting Diagnosis #Acute uncomplicated appendicitis Labs/Diagnostic Data: Laboratory Results Test 11/09/24 04:03 11/08/24 19:17 11/08/24 05:26 11/08/24 01:15 White Blood Count 14.0 10^3/uL (4.4-10.8) Red Blood Count 4.51 10^6/uL (4.5-5.90) Hemoglobin 13.8 g/dL (13.5-17.5) Hematocrit 39.1 % (41.0-53.0) Mean Corpuscular Volume 86.9 fL (80.0-100.0) Mean Corpuscular Hemoglobin 30.6 pg (28.0-32.0) Mean Corpuscular Hemoglobin Concent 35.2 g/dL (32.0-36.0) Red Cell Distribution Width 13.1 % (11.8-14.3) Platelet Count 207 10^3/uL (140-450) Mean Platelet Volume 8.6 fL (6.9-10.8) Neutrophils (%) (Auto) 75.8 % (37.0-80.0) Lymphocytes (%) (Auto) 14.7 % (10.0-50.0) Monocytes (%) (Auto) 8.9 % (0.0-12.0) Eosinophils (%) (Auto) 0.4 % (0.0-7.0) Basophils (%) (Auto) 0.2 % (0.0-2.0) Neutrophils # (Auto) 10.6 10 ^3/uL (1.6-8.6) Lymphocytes # (Auto) 2.1 10 ^3/uL (0.4-5.4) Monocytes # (Auto) 1.3 10 ^3/uL (0-1.3) Eosinophils # (Auto) 0.1 10 ^3/uL (0-0.8) Basophils # (Auto) 0 10 ^3/uL (0-0.2) Nucleated Red Blood Cells 0.0 % Sodium Level 141 mmol/L (136-145) Potassium Level 3.6 mmol/L (3.5-5.1) Chloride Level 107 mmol/L (98-107) Carbon Dioxide Level 25 mmol/L (20-31) Anion Gap 9 (5-15) Blood Urea Nitrogen 8 mg/dL (9-23) Creatinine 0.83 mg/dL (0.700-1.30) Glomerular Filtration Rate Calc 122 mL/min (>90) BUN/Creatinine Ratio 9.6 (10.0-20.0) Serum Glucose 93 mg/dL (74-106) Calcium Level 8.7 mg/dL (8.7-10.4) Total Bilirubin 0.8 mg/dL (0.2-1.0) Aspartate Amino Transferase (AST) 15 U/L (13-40) Alanine Aminotransferase (ALT) 14 U/L (7-40) Alkaline Phosphatase 60 U/L (46-116) Total Protein 6.8 g/dL (5.7-8.2) Albumin 4.3 g/dL (3.2-4.8) Prothrombin Time 12.1 sec (9.3-11.8) Prothrombin Time INR 1.16 (0.9-1.15) Lactic Acid Level 0.8 mmol/L (0.4-2.0) Lipase 30 U/L (12-53) Beta-Hydroxybutyric Acid 0.220 mmol/L (< 0.4) Plasma/Serum Blood Alcohol < 3.0 mg/dL (<10) Influenza Type A Antigen Negative (Negative) Influenza Type B Antigen Negative (Negative) SARS-CoV-2 Antigen (Rapid) Negative (NEGATIVE) Test 11/08/24 01:04 11/07/24 20:03 Urine Color Yellow (Yellow) Urine Clarity Clear (Clear) Urine pH 8.0 (5.0-9.0) Urine Specific [place] > 1.050 (1.001-1.035) Urine Protein Trace (Negative) Urine Ketones 3+ (Negative) Urine Blood Negative /uL (Negative) Urine Nitrite Negative (Negative) Urine Bilirubin Negative (Negative) Urine Urobilinogen Normal mg/dL (Negative) Urine Leukocyte Esterase Negative /uL (Negative) Urine RBC 4 /hpf (0 - 3) Urine Microscopic WBC 1 /HPF (0-3) Urine Squamous Epithelial Cells None seen /hpf (<5) Urine Bacteria None seen /hpf (None Seen) Urine Glucose Normal mg/dL (Normal) Urine Opiates Screen Neg (NEGATIVE) Urine Fentanyl Screen Neg (NEGATIVE) Urine Barbiturates Screen Neg (NEGATIVE) Urine Phencyclidine Screen Neg (NEGATIVE) Urine Amphetamines Screen Neg (NEGATIVE) Urine Benzodiazepines Screen Neg (NEGATIVE) Urine Cocaine Screen Neg (NEGATIVE) Urine Cannabinoids Screen Neg (NEGATIVE) POC Glucose 132 mg/dl (70-106) Other Laboratory Tests 11/09/24 04:03 Brief Hx & Hospital Course: A 29-year-old male presented with acute onset abdominal pain, nausea, tingling in hands, and fever beginning at 10:00 a.m. on 11/07/2024. On presentation, patient reported sharp abdominal pain rated 8/10, persistent throughout the day. Labs revealed neutrophilic leukocytosis and elevated lactic acid (5.4). CT abdomen showed mild appendicitis without abscess.Surgical consultation recommended conservative management with IV antibiotics and fluids. Patient was kept NPO during evaluation. Over the hospital stay, symptoms improved clinically with no further nausea, vomiting, chest pain, or shortness of breath. No surgical intervention was deemed necessary at this time. Leukocytosis improved and diet was advanced with adequate tolerance Discharge Plan: Medications: Oral antibiotics: Levofloxacin + Metronidazole for 5 days Diet: Advance as tolerated, clear liquid diet for 3 days Activity: As tolerated Follow-up: Outpatient surgical follow-up if symptoms recur Primary care follow-up within 1 week Return Precautions: Return to ER for worsening abdominal pain, fever, vomiting, or other concerning symptoms Case with Dr Cox Full code Cosigning senior Resident: Korin Trevino, agree with discharge summary Consults/Reason for consult surgical consult: conservative management Operations or Procedures HISTORY: dental infection TECHNIQUE: Nonenhanced axial images through the facial bones with coronal and sagittal MPR. Radiation Dose Information: CT Dose: CTDI volume is 66.95 mGy. Dose-length product is 1.78 mGy*cm COMPARISON: None FINDINGS: Several dental restorations are present. Recent appearing right mandibular 3rd molar extraction. No obvious dental carious lesion or periapical lucency. No evidence of abscess or significant soft tissue inflammation. No lymphadenopathy. Mild mucosal thickening of the maxillary sinuses. The orbits are unremarkable. Normal appearance of vascular structures. No acute finding of the imaged intracranial contents or superior cervical spine. 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 IMPRESSION: 1. No evidence of facial abscess or significant inflammation. 2. Several dental restorations and a recent appearing right mandibular 3rd molar extraction. Exam: CT CT AB PEL WITH IV CON ONLY History: abd pain Comparison Study: CT CT AB PEL WO CON-NO ORAL OR IV on DOS: 11/07/24 TECHNIQUE: A digital motor equipment commanding officer image was obtained. During the uneventful, intravenous administration of contrast material, multislice data acquisition was obtained through the abdomen and pelvis. The data set was subsequently reconstructed into multiplanar reformats. RADIATION DOSE: CTDI vol 10.83 mGy. DLP 2094.59 mGy.cm Findings: Lungs: The lung bases are clear. Liver: Unremarkable. Spleen: Unremarkable. Pancreas: Unremarkable. Gallbladder: Unremarkable. Adrenals: Unremarkable Kidneys: Unremarkable. Pelvic Viscera: Unremarkable. Vasculature: Unremarkable. Retroperitoneum: Unremarkable. Bowel: No bowel obstruction. Fluid-filled appendix measuring up to 8 mm with minimal adjacent stranding. No abscess. Musculoskeletal: Unremarkable. Soft tissues: Unremarkable Impression: 1. Findings as above raising the possibility of a mild acute appendicitis in the appropriate clinical setting. No abscess. CHEST RADIOGRAPH Indication: sob Technique: Single frontal view of the chest was obtained Comparison: None FINDINGS: Lines and Tubes: None Lungs: No focal consolidation. Pleura: No effusion. No pneumothorax. Cardiomediastinal contours: Unremarkable Bones: No acute osseous abnormality. IMPRESSION: 1. No acute cardiopulmonary disease. Condition at Discharge: Stable Final Diagnosis/Problems List #Acute uncomplicated appendicitis #Intractable abdominal pain due to above resolved #Sepsis due to above #Ruled out periodontal abscess Discharge Disposition: Home Discharge Instruct/Medications Diet: See Comment Diet comment: Full liquid diet (ensure) Activity: No Restrictions, As Tolerated Follow Up/Referral: PCP Surgery Medications: Levofloxacin 500 mg PO daily Flagyl 500mg PO tid Scheduled Levofloxacin Hemihydrate (Levofloxacin), 1 TAB PO DAILY Metronidazole (Flagyl), 1 TAB PO TID Nutritional Supplements (Ensure High Protein), 1 BERY PO TID Discharge Statement: "Patient was advised to return to the ER or call 911 if any headaches, dizziness, shortness of breath, chest pain, abdominal pain, bleeding, fevers, or worsening of medical condition. Patient was counseled about treatment plan, medications, possible side effects, patientverbalized understanding. All questions were answered to the best of my ability. This discharge took greater then 30 minutes in planning, reviewing documentation, counseling the patient, and discussing with other team members." ASSESSMENT ASSESSMENT Assessment Acute uncomplicated appendicitis AYLIN PÉREZ Nov 09, 2024 15:05 KORIN TREVINO RESIDENT Nov 10, 2024 00:10
== END 2024-11-09 17:30 | disposition home or self-care (01) | DRG 720 ==
LOC: ER 19:46 → OVERFLOW 11-08 02:58 → CENTRAL 11-09 02:13
PROVIDERS: ADMIT Student in an Organized Health Care Education/Training Program; ATTEND Student in an Organized Health Care Education/Training Program
DX: A41.9 Sepsis, unspecified organism (principal); E87.20 Acidosis, unspecified; K35.80 Unspecified acute appendicitis; Z20.822 Contact with and (suspected) exposure to COVID-19; E87.6 Hypokalemia
CPT/HCPCS: 36415; 70487; 71045; 74176; 74177; 80048; 80053; 80307; 80320; 81001; 82010; 82962; 83605; 83690; 85025; 85610; 87040; 87426; 87804; 96365; 96375; G0378; J1885; J2003; J2405; J2543; J3490